=== PATIENT | male | born 1990 | race Caucasian/White ===

== ENCOUNTER 2021-01-15 03:26 | Outpatient (CLI) | payer MEDICAID, MEDICARE, SELFPAY ==
[2021-01-15 12:56] LABS: Abs Immature Grans 0.03 10^3/uL (0.0-0.06); Absolute Basophil Count 0.06 10^3/uL (0.0-0.2); Absolute Eosinophil Count 0.08 10^3/uL (0.0-0.7); Absolute Lymphocyte Count 2.21 10^3/uL (1.2-3.4); Absolute Monocyte Count 0.62 10^3/uL (0.1-0.8); Basophils % 0.8; Eosinophils % 1.1; HCT 47.9 % (40.0-50.0); HGB 16.3 g/dL (13.5-17.5); Immature Grans % 0.4; Lymphocytes % 31.1; MCH 27.7 pg (27.0-33.0); MCV 81.3 fL (80-95); MPV 10.7 fL (8.0-11.0); Monocytes % 8.7; Neutrophils % 57.9; Nucleated RBC 0 %; Platelet Count 293 10^3/uL (130-400); RBC 5.89 10^6/uL (4.36-5.78); RDW 12.2 % (11.8-14.1); RDW-SD 36.1 fL
[2021-01-15 13:15] LABS: Hemoglobin A1C 5.4 % (<5.7)
[2021-01-15 14:24] LABS: Iron 96 ug/dL (65-175); Total Iron Binding Capacity 302 ug/dL (250-450); Transferrin Sat 32 % (20-55)
[2021-01-15 14:27] LABS: ALT 38 U/L (16-63); AST 24 U/L (15-37); Albumin 4.1 g/dL (3.4-5.0); Alkaline Phosphatase 94 U/L (46-116); Anion Gap 10.1 mmol/L (3-11); BUN 18 mg/dL (7-18); Bilirubin, Total 0.4 mg/dL (0.2-1.0); CO2 26.9 mmol/L (21.0-32.0); CREATININE 0.9 mg/dL (0.70-1.30); Calcium 9.8 mg/dL (8.5-10.1); Calculated LDL 105 mg/dL (<100); Chloride 104 mmol/L (98-107); Cholesterol 187 mg/dL (<200); Ferritin 219 ng/mL (26-388); Glucose 99 mg/dL (74-106); HDL Cholesterol 39 mg/dL (40-60); Sodium 141 mmol/L (136-145); Total Protein 7.2 g/dL (6.4-8.2); Triglyceride 218 mg/dL (<150)
[2021-01-16 09:38] LABS: Homocysteine 9.2 umol/L (5.0-13.9)
[2021-01-20 03:58] LABS: 25-Hydroxy D Total 57 ng/mL; 25-Hydroxy D2 <4.0 ng/mL; 25-Hydroxy D3 57 ng/mL
[2021-01-20 22:07] LABS: Result Summary NEGATIVE; Specimen WB Whole Blood
== END 2021-01-15 03:27 | disposition home or self-care (01) ==
PROVIDERS: PCP Naturopath; Visit Provider Naturopath
DX: E78.5 Hyperlipidemia, unspecified (principal); E55.9 Vitamin D deficiency, unspecified; R77.8 Other specified abnormalities of plasma proteins
CPT/HCPCS: 36415; 80053; 80061; 82306; 83090; 81256; 82728; 83036; 83540; 83550; 85025

== ENCOUNTER 2024-05-21 15:45 | Outpatient (REF) | payer MEDICARE, MEDICAID, SELFPAY ==
[2024-05-21 19:03] LABS: Abs Immature Grans 0.03 10^3/uL (0.0-0.06); Absolute Basophil Count 0.06 10^3/uL (0.0-0.2); Absolute Eosinophil Count 0.15 10^3/uL (0.0-0.7); Absolute Lymphocyte Count 1.91 10^3/uL (1.2-3.4); Absolute Monocyte Count 0.63 10^3/uL (0.1-0.8); Absolute Neutrophil Count 3.12 10^3/uL (1.2-6.7); Eosinophils % 2.5 %; HCT 47.7 % (40.0-50.0); HGB 16.1 g/dL (13.5-17.5); Immature Grans % 0.5 %; Lymphocytes % 32.4 %; MCHC 33.8 % (32.0-36.0); MCV 83 fL (80-95); MPV 10.7 fL (8.0-11.0); Monocytes % 10.7 %; Neutrophils % 52.9 %; Platelet Count 285 10^3/uL (130-400); RBC 5.75 10^6/uL (4.36-5.78); RDW 12.6 % (11.8-14.1); RDW-SD 38.2 fL
[2024-05-21 19:52] LABS: Iron 67 ug/dL (65-175); Total Iron Binding Capacity 302 ug/dL (250-450); Transferrin Sat 22 % (20-55)
[2024-05-21 19:57] LABS: ALT 42 U/L (16-63); AST 23 U/L (15-37); Albumin 4.3 g/dL (3.4-5.0); Alkaline Phosphatase 112 U/L (46-116); Anion Gap 7.7 mmol/L (3-11); BUN 16 mg/dL (7-18); Bilirubin, Total 0.33 mg/dL (0.2-1.0); CO2 29.3 mmol/L (21.0-32.0); CREATININE 0.9 mg/dL (0.70-1.30); Calcium 9.4 mg/dL (8.5-10.1); Calculated LDL 107 mg/dL (<100); Chloride 105 mmol/L (98-107); Cholesterol 168 mg/dL (<200); Estimated GFR 114.93 (mL/min/1.73m2); Ferritin 182 ng/mL (26-388); Glucose 112 mg/dL (74-106); HDL Cholesterol 41 mg/dL (40-60); Sodium 142 mmol/L (136-145); TSH (W/Ref FT4) 5.21 uIU/mL (0.36-3.74); Total Protein 7.5 g/dL (6.4-8.2); Triglyceride 102 mg/dL (<150); Vitamin D 25 Total 26.3 ng/mL (30-100)
[2024-05-21 20:19] LABS: FREE T4 0.89 ng/dL (0.76-1.46)
[2024-05-22 20:17] LABS: Hepatitis C Ab w Rflx HCV PCR Negative (Negative)
[2024-05-22 20:25] LABS: HIV-1/2 Ag & Ab Screen Negative (Negative)
== END 2024-05-21 15:46 | disposition home or self-care (01) ==
LOC: NCHCN 15:45
PROVIDERS: PCP Naturopath; Visit Provider Physician Assistant
DX: R79.0 Abnormal level of blood mineral (principal); E55.9 Vitamin D deficiency, unspecified; R79.89 Other specified abnormal findings of blood chemistry; R94.6 Abnormal results of thyroid function studies; R77.8 Other specified abnormalities of plasma proteins; R73.09 Other abnormal glucose; E66.8 Other obesity; Z11.4 Encounter for screening for human immunodeficiency virus [HIV]; Z11.59 Encounter for screening for other viral diseases; F34.81 Disruptive mood dysregulation disorder; E78.5 Hyperlipidemia, unspecified
CPT/HCPCS: 80053; 80061; 82306; 86803; 87389; 82728; 83540; 83550; 84439; 84443; 85025

== ENCOUNTER 2024-08-10 15:03 | Outpatient (REF) | payer MEDICARE, MEDICAID, SELFPAY ==
[2024-08-10 19:36] LABS: FREE T4 0.75 ng/dL (0.76-1.46)
[2024-08-10 20:51] LABS: Vitamin B12 350 pg/mL (193-986)
== END 2024-08-10 15:04 | disposition home or self-care (01) ==
LOC: NCHCN 15:03
PROVIDERS: PCP Naturopath; Visit Provider Physician Assistant
DX: R89.2 Abnormal level of other drugs, medicaments and biological substances in specimens from other organs, systems and tissues
CPT/HCPCS: 82607; 84439; 84443

== ENCOUNTER 2024-10-05 16:20 | Outpatient (REF) | payer MEDICARE, MEDICAID, SELFPAY ==
--- OUTSIDE RECORDS SUMMARY | 2024-10-05 16:22 | XMS_ITS | Encounter Summary ---
Author Organization [facility] Address [address] [place] [address] Care Team Providers Care Mail Handler Equipment Operator Name Role Phone Harinder Hernandez APRN Primary Care Provider [phone] Encounter Details Date Type Department Care Team (Late st Contact Info) Description 05/22/2024 Lab Requisition [facility] Pathology & Laboratory Medicine - [facility] [address] [place] [address] Outr Resulting Lab, Provider Social History Tobacco Use Types Packs/Day Years Used Date Smoking Tobacco: Never Assessed Sex and Gender Information Value Date Recorded Sex Assigned at Not on file Legal Sex Male 11:22 EDT Gender Identity Not on file Sexual Orientation Not on file documented as of this encounter Plan of Treatment Not on file documented as of this encounter Procedures Procedure Name Priority Date/Time Associated Diagnosis Comments HIV 1/2 ANTIGEN AND ANTIBODY, 4TH GENERATION Routine 05/21/2024 8:30 EDT documented in this encounter Results * HIV 1/2 ANTIGEN AND ANTIBODY, 4TH GENERATION (05/21/2024 8:30 EDT) HIV 1 and 2 Antibody/p24 Antigen, 4th Generation Negative Negative 05/22/2024 20:21 EDT [facility] Comment:If acute HIV-1 infec tion is suspected in a high risk patient, submit plasma specimen for HIV-1 RNA quantitation test. Blood VENOUS BLOOD / Unknown 05/21/2024 8:30 EDT 05/22/2024 17:37 EDT Narrative [facility] - 05/22/2024 20:21 EDT Fourth Generation assay performed on the Siemens Centaur XPT. us Provider Outr Resulting Lab IMMUNOLOGY AND SEROL OGY ORDERABLES Final Result [facility] [address] [place] [address] documented in this encounter Visit Diagnoses Not on filedocumented in this encounter Care Teams Mail Handler Equipment Operator Relationship Specialty Start Date End Date Harinder Hernandez APRN [address] [place] [address] [address] [place] [address] PCP - General 07/11/15 documented as of this encounter
--- OUTSIDE RECORDS SUMMARY | 2024-10-05 16:22 | XMS_ITS | Encounter Summary ---
Author Organization [facility] Address [address] [place] [address] Care Team Providers Care Recoater Name Role Phone Harinder Hernandez APRN Primary Care Provider [phone] Encounter Details Date Type Department Care Team (Late st Contact Info) Description 01/15/2021 Lab Requisition [facility] Pathology & Laboratory Medicine - [facility] [address] [place], [place] [address] Outr Resulting Lab, Provider Social History Tobacco [...] Procedure Name Priority Date/Time Associated Diagnosis Comments HOMOCYSTEINE Routine 01/15/2021 12:42 EST documented in this encounter Results * HOMOCYSTEINE (01/15/2021 12:42 EST) Homocysteine 9.2 5.0 - 13.9 umol/L 01/16/2021 9:33 EST [facility] Blood VENOUS BLOOD / Unknown 01/15/2021 12:42 EST 01/15/2021 20:59 EST Narrative [facility] - 01/16/2021 9:33 EST Reference range may not apply to non-fasting samples. ??It is not recommended that EDTA plasma and serum from the same patient be used interchangeably. ??Serum concentrations have been observed to be up to 10% higher than EDTA plasma. Reference range may not apply to serum results. us Provider Outr Resulting Lab CHEMISTRY & BLOOD GA S ORDERABLES Final Result [facility] [address] [place] [address] documented in this encounter Visit Diagnoses Not on filedocumented in this encounter Care Teams Recoater Relationship Specialty Start Date End Date Harinder Hernandez APRN [address] [place] [address] [address] [place] [address] PCP - General 07/11/15 documented as of this encounter
--- OUTSIDE RECORDS SUMMARY | 2024-10-05 16:22 | XMS_ITS | Encounter Summary ---
Author Organization [facility] Address [address] [place] [address] Care Team Providers Care Flea Market Seller Name Role Phone Harinder Hernandez APRN Primary Care Provider [phone] Encounter Details Date Type Department Care Team (Late st Contact Info) Description 05/22/2024 Lab Requisition [facility] Pathology & Laboratory Medicine - [facility] [address] [place] [address] Outr Resulting Lab, Provider Social History Tobacco [...] Procedure Name Priority Date/Time Associated Diagnosis Comments HEPATITIS C AB W REFLEX TO HCV RNA BY PCR Routine 05/21/2024 8:30 EDT documented in this encounter Results * HEPATITIS C AB W REFLEX TO HCV RNA BY PCR (05/21/2024 8:30 EDT) Hep C Antibody Negative Negative 05/22/2024 20:[address] [facility] Blood VENOUS BLOOD / Unknown 05/21/2024 8:30 EDT 05/22/2024 17:37 EDT us Provider Outr Resulting Lab CHEMISTRY & BLOOD GA S ORDERABLES Final Result [facility] [address] [place], [place] [address] documented in this encounter Visit Diagnoses Not on filedocumented in this encounter Care Teams Flea Market Seller Relationship Specialty Start Date End Date Harinder Hernandez APRN [address] [place] [address] [address] [place] [address] PCP - General 07/11/15 documented as of this encounter
--- OUTSIDE RECORDS SUMMARY | 2024-10-05 16:22 | XMS_ITS | Clinical Summary ---
Author Organization [facility] Address [address] [place] [address] Care Team Providers Care Inpatient Auditor Name Role Phone Harinder Hernandez APRN Primary Care Provider [phone] Social History Tobacco Use Types Packs/Day Years Used Date Smoking Tobacco: Never Assessed Sex and Gender Information Value Date Recorded Sex Assigned at Not on file Legal Sex Male 11:22 EDT Gender Identity Not on file Sexual Orientation Not on file Plan of Treatment Health Maintenance Due Date Last Done Comments Hepatitis B Vaccine (1 of 3 - 19+ 3-dose series) 08/24 COVID-19 Vaccine ( season) 2024 Hepatitis C Screen Completed 05/21/2024 Procedures Procedure Name Priority Date/Time Associated Diagnosis Comments HEPATITIS C AB W REFLEX TO HCV RNA BY PCR Routine 05/21/2024 8:30 EDT from Last 3 Months or Most Recently Relevant to Health Maintenance Results * HEPATITIS C AB W REFLEX TO HCV RNA BY PCR (05/21/2024 8:30 EDT) Hep C Antibody Negative Negative 05/22/2024 20:12 EDT [facility] Blood VENOUS BLOOD / Unknown 05/21/2024 8:30 EDT 05/22/2024 17:37 EDT us Provider Outr Resulting Lab CHEMISTRY & BLOOD GA S ORDERABLES Final Result [facility] [address] [place], [place] [id number] from Last 3 Months or Most Recently Relevant to Health Maintenance Care Teams Inpatient Auditor Relationship Specialty Start Date End Date Harinder Hernandez APRN [address] [place] [address] [address] [place] [address] PCP - General 07/11/15
--- OUTSIDE RECORDS SUMMARY | 2024-10-05 16:22 | XMS_ITS | Referral Summary ---
Author Organization [facility] Address [address] [place] [address] Care Team Providers Care Mammal Control Agent Name Role Phone Harinder Hernandez APRN Primary Care Provider [phone] Social History Tobacco Use Types Packs/Day Years Used Date Smoking Tobacco: Never Assessed Sex and Gender Information Value Date Recorded Sex Assigned at Not on file Legal Sex Male 11:22 EDT Gender Identity Not on file Sexual Orientation Not on file Plan of Treatment Not on file Procedures Procedure Name Priority Date/Time Associated Diagnosis Comments HEPATITIS C AB W REFLEX TO HCV RNA BY PCR Routine 05/21/2024 8:30 EDT from Last 3 Months or Most Recently Relevant to Health Maintenance Results * HEPATITIS C AB W REFLEX TO HCV RNA BY PCR (05/21/2024 8:30 EDT) Hep C Antibody Negative Negative 05/22/2024 20:12 EDT [facility] Blood VENOUS BLOOD / Unknown 05/21/2024 8:30 EDT 05/22/2024 17:37 EDT us Provider Outr Resulting Lab CHEMISTRY & BLOOD GA S ORDERABLES Final Result [facility] [address] [place], [place] [address] from Last 3 Months or Most Recently Relevant to Health Maintenance Care Teams Mammal Control Agent Relationship Specialty Start Date End Date Harinder Hernandez APRN [address] [place] [address] [address] [place], [place] [id number] PCP - General 8/21/15
[2024-10-05 19:24] LABS: FREE T4 0.79 ng/dL (0.76-1.46); TSH 4.93 uIU/mL (0.36-3.74)
== END 2024-10-05 16:21 | disposition home or self-care (01) ==
LOC: NCHCN 16:20
PROVIDERS: PCP Naturopath; Visit Provider Physician Assistant
DX: R94.6 Abnormal results of thyroid function studies (principal)
CPT/HCPCS: 84439; 84443

== ENCOUNTER 2024-11-23 16:51 | Outpatient (REF) | payer MEDICARE, MEDICAID, SELFPAY ==
--- OUTSIDE RECORDS SUMMARY | 2024-11-23 16:53 | XMS_ITS | Encounter Summary ---
Author Organization [facility] Address [address] [place] [address] Care Team Providers Care Sticker Machine Operator Name Role Phone Harinder Hernandez APRN Primary Care Provider [phone] Encounter Details Date Type Department Care Team (Late st Contact Info) Description 01/15/2021 Lab Requisition [facility] Pathology & Laboratory Medicine - [facility] [address] [place], [place] [address] Outr Resulting Lab, Provider Social History Tobacco [...] 5.0 - 13.9 umol/L 01/16/2021 9:33 EST [facility] Blood VENOUS BLOOD / Unknown 01/15/2021 12:42 EST 01/15/2021 20:59 EST Narrative [facility] - 01/16/2021 9:33 EST Reference [...] & BLOOD GA S ORDERABLES Final Result [facility] [address] [place] [address] documented in this encounter Visit Diagnoses Not on filedocumented in this encounter Care Teams Sticker Machine Operator Relationship Specialty Start Date End Date Harinder Hernandez APRN [address] [place] [address] [address] [place] [address] PCP - General 07/11/15 documented as of this encounter
--- OUTSIDE RECORDS SUMMARY | 2024-11-23 16:53 | XMS_ITS | Encounter Summary ---
Author Organization [facility] Address [address] [place] [address] Care Team Providers Care Level Vial Grinder Name Role Phone Harinder Hernandez APRN Primary Care Provider [phone] Encounter Details Date Type Department Care Team (Late st Contact Info) Description 05/22/2024 Lab Requisition [facility] Pathology & Laboratory Medicine - [facility] [address] [place] [address] Outr Resulting Lab, Provider Social History Tobacco [...] 4th Generation Negative Negative 05/22/2024 20:21 EDT [facility] Comment:If acute HIV-1 infec tion is suspected in a high risk patient, submit plasma specimen for HIV-1 RNA quantitation test. Blood VENOUS BLOOD / Unknown 05/21/2024 8:30 EDT 05/22/2024 17:37 EDT Narrative [facility] - 05/22/2024 20:21 EDT Fourth Generation assay performed on the Siemens Centaur XPT. us Provider Outr Resulting Lab IMMUNOLOGY AND SEROL OGY ORDERABLES Final Result [facility] [address] [place] [address] documented in this encounter Visit Diagnoses Not on filedocumented in this encounter Care Teams Level Vial Grinder Relationship Specialty Start Date End Date Harinder Hernandez APRN [address] [place] [address] [address] [place] [address] PCP - General 07/11/15 documented as of this encounter
--- OUTSIDE RECORDS SUMMARY | 2024-11-23 16:53 | XMS_ITS | Referral Summary ---
Author Organization [facility] Address [address] [place] [address] Care Team Providers Care Monkey Keeper Name Role Phone Harinder Hernandez APRN Primary Care Provider [phone] Social History Tobacco Use Types Packs/Day Years [...] C Antibody Negative Negative 05/22/2024 20:12 EDT [facility] Blood VENOUS BLOOD / Unknown 05/21/2024 8:30 EDT 05/22/2024 17:37 EDT us Provider Outr Resulting Lab CHEMISTRY & BLOOD GA S ORDERABLES Final Result [facility] [address] [place], [place] [address] from Last 3 Months or Most Recently Relevant to Health Maintenance Care Teams Monkey Keeper Relationship Specialty Start Date End Date Harinder Hernandez APRN [address] [place] [address] [address] [place], [place] [id number] PCP - General 8/21/15
--- OUTSIDE RECORDS SUMMARY | 2024-11-23 16:53 | XMS_ITS | Encounter Summary ---
Author Organization [facility] Address [address] [place] [address] Care Team Providers Care Cans Vacuum Tester Name Role Phone Harinder Hernandez APRN Primary Care Provider [phone] Encounter Details Date Type Department Care Team (Late st Contact Info) Description 05/22/2024 Lab Requisition [facility] Pathology & Laboratory Medicine - [facility] [address] [place] [address] Outr Resulting Lab, Provider Social History Tobacco [...] C Antibody Negative Negative 05/22/2024 20:12 EDT [facility] Blood VENOUS BLOOD / Unknown 05/21/2024 8:30 EDT 05/22/2024 17:37 EDT us Provider Outr Resulting Lab CHEMISTRY & BLOOD GA S ORDERABLES Final Result [facility] [address] [place], [place] [address] documented in this encounter Visit Diagnoses Not on filedocumented in this encounter Care Teams Cans Vacuum Tester Relationship Specialty Start Date End Date Harinder Hernandez APRN [address] [place] [address] [address] [place] [address] PCP - General 07/11/15 documented as of this encounter
--- OUTSIDE RECORDS SUMMARY | 2024-11-23 16:53 | XMS_ITS | Clinical Summary ---
Author Organization [facility] Address [address] [place] [address] Care Team Providers Care Fire Lookout Name Role Phone Harinder Hernandez APRN Primary Care Provider [phone] Social History Tobacco Use Types Packs/Day Years [...] C Antibody Negative Negative 05/22/2024 20:12 EDT [facility] Blood VENOUS BLOOD / Unknown 05/21/2024 8:30 EDT 05/22/2024 17:37 EDT us Provider Outr Resulting Lab CHEMISTRY & BLOOD GA S ORDERABLES Final Result [facility] [address] [place], [place] [id number] from Last 3 Months or Most Recently Relevant to Health Maintenance Care Teams Fire Lookout Relationship Specialty Start Date End Date Harinder Hernandez APRN [address] [place] [address] [address] [place] [address] PCP - General 07/11/15
[2024-11-23 19:26] LABS: TSH (W/Ref FT4) 2.46 uIU/mL (0.36-3.74)
== END 2024-11-23 16:52 | disposition home or self-care (01) ==
LOC: NCHCN 16:51
PROVIDERS: PCP Naturopath; Visit Provider Physician Assistant
DX: E03.9 Hypothyroidism, unspecified (principal)
CPT/HCPCS: 84443

== ENCOUNTER 2025-06-14 18:06 | Outpatient (REF) | payer MEDICARE, MEDICAID, SELFPAY ==
[2025-06-14 19:59] LABS: ALT 50 U/L (16-63); AST 31 U/L (15-37); Albumin 4.2 g/dL (3.4-5.0); Alkaline Phosphatase 148 U/L (46-116); Anion Gap 10.8 mmol/L (3-11); BUN 18 mg/dL (7-18); Bilirubin, Total 0.4 mg/dL (0.2-1.0); CO2 24.2 mmol/L (21.0-32.0); Calcium 9.1 mg/dL (8.5-10.1); Chloride 105 mmol/L (98-107); Estimated GFR 100.66 (mL/min/1.73m2); Glucose 142 mg/dL (74-106); Potassium 3.9 mmol/L (3.5-5.1); Sodium 140 mmol/L (136-145); TSH (W/Ref FT4) 2.19 uIU/mL (0.36-3.74); Total Protein 7.5 g/dL (6.4-8.2)
== END 2025-06-14 18:07 | disposition home or self-care (01) ==
LOC: NCHCN 18:06
PROVIDERS: PCP Naturopath; Visit Provider Physician Assistant
DX: E03.9 Hypothyroidism, unspecified (principal)
CPT/HCPCS: 80053; 84443